=== PATIENT | female | born 1935 | race Caucasian/White ===

== ENCOUNTER → 2017-07-12 | Outpatient (CLI) | payer MEDICARE ==
[~2017-07-12] MED LIST: ARTIFICIAL TEAR15 ML OPHTH; ATIVAN 0.5MG0.5 MG PO; COLACE100 MG PO; CYMBALTA30 MG PO; DILAUDID 2MG(HYD2 MG PO; DULCOLAX10 MG R; DULCOLAX5 MG PO; LOPRESSOR50 MG PO; LYRICA 50MG CAP50 MG PO; LYRICA 75MG CAP75 MG PO; MIRALAX17 GM PO; TEARS AGAIN EYE5 GM OPHTH; TYLENOL WITH C1 EACH PO; TYLENOL325 MG PO
== END | disposition disaster alternative care site (69) ==
LOC: GAMB 11:58
DX: R06.00 Dyspnea, unspecified (principal); M54.5 Low back pain; E11.9 Type 2 diabetes mellitus without complications; F60.4 Histrionic personality disorder; G61.0 Guillain-Barre syndrome; G51.0 Bell's palsy; Z79.891 Long term (current) use of opiate analgesic; Z88.7 Allergy status to serum and vaccine; Z88.8 Allergy status to other drugs, medicaments and biological substances
CPT/HCPCS: A0422; A0425; A0427